=== PATIENT | female | born 1990 | race Caucasian/White ===

== ENCOUNTER 2020-10-23 13:29 | Emergency (ER) | payer MEDICAID ==
[~2020-10-23] VITALS: Ht 160 cm; Wt 59.0 kg
[2020-10-23 13:38] VITALS: BP 127/73
[2020-10-23] MEDS ORDERED: FAMOTIDINE 20MG TABLET PO ONE (15:15)
[2020-10-23] MEDS ORDERED: PREDNISONE 20MG TABLET PO ONE (15:15)
[2020-10-23] MEDS ORDERED: FAMO-135 MT (16:13)
[2020-10-23] MEDS ORDERED: EPIN0.3P3 IM (16:13)
[2020-10-23] MEDS ORDERED: P20 MT (16:13)
== END 2020-10-23 16:29 | disposition home or self-care (01) ==
LOC: ER 13:29
DX: L50.9 Urticaria, unspecified (principal)
CPT/HCPCS: 99283; J7512